=== PATIENT | female | born 1995 | race Caucasian/White ===

== ENCOUNTER 2022-04-01 13:07 | Outpatient (CLI) | payer OTHER, SELFPAY ==
--- NOTE | ~2022-04-01 | XR_ITS ---
EXAMINATION: XR tibia fibula RT 2V, XR tibia fibula LT 2V DATE: 04/01/2022 13:19 INDICATION: Bilateral lower leg pain TECHNIQUE: 1. Anteroposterior and lateral views of the left tibia and fibula were obtained. 2. Anteroposterior and lateral views of the right tibia and fibula were obtained. COMPARISON: None. FINDINGS: Bone alignment is normal. No fracture. Joint spaces are normal at the bilateral knees, ankles and vis ualized hind feet. No erosions or periosteal reaction. Mild soft tissue swelling anterior to the dist al right tibial diaphysis. No knee or ankle joint effusions. IMPRESSION: 1. No osseous abnormality at either lower leg. Reviewed, dictated and finalized at location A. IMPRESSION: 1. No osseous abnormality at either lower leg.
== END 2022-04-01 13:08 | disposition home or self-care (01) ==
PROVIDERS: Visit Provider Orthopaedic Surgery
DX: M79.605 Pain in left leg (principal); M79.604 Pain in right leg
CPT/HCPCS: 73590

== ENCOUNTER → 2022-09-23 13:38 | Outpatient (CLI) | payer OTHER, SELFPAY ==
--- NOTE | ~2022-09-23 | US_ITS ---
EXAMINATION: US OB <= 14 weeks fetus INDICATION: Z34.91 - Encounter for supervision of normal , u... TECHNIQUE: Sonography of the pelvis was performed by transabdominal and transvaginal techniques. COMPARISON: None. RESULT: Uterus: Orientation: Anteverted. 10.9 x 6.3 x 6.4 cm. Myometrium: homogeneous echogenicity. Gestation: - Intrauterine gestational sac: Single present. - Yolk sac: A small yolk sac or yolk sac remnant is present, not directly measured. - Embryo: Single present. - [employer] rump length: 3.3 cm, corresponding gestational age 10 weeks, 2 days. -Gestational heart rate: present 164 bpm. -Subgestational hematoma: Absent . Right ovary: Not visualized. No adnexal mass. Left ovary: Not visualized. No adnexal mass. Pelvis free fluid: None. IMPRESSION: Single, live intrauterine gestation. Estimated Gestational Age: 10 weeks, 2 days by crown rump length. DOMONIQUE by ultrasound 04/19/2023. Reviewed, dictated and finalized at location K. IMPRESSION: Single, live intrauterine gestation. Estimated Gestational Age: 10 weeks, 2 days by crown rump length. DOMONIQUE by ultra sound 04/19/2023.
== END ==
PROVIDERS: PCP Obstetrics & Gynecology; Visit Provider Registered Nurse
DX: Z34.91 Encounter for supervision of normal pregnancy, unspecified, first trimester (principal); Z3A.10 10 weeks gestation of pregnancy
CPT/HCPCS: 76801

== ENCOUNTER 2022-10-17 15:37 | Outpatient (CLI) | payer OTHER, SELFPAY ==
[2022-10-17 16:04] LABS: Basophils Absolute Auto 0.1 K/mm3 (0.0-0.1); Basophils Percent Auto 0.8 % (0.2-1.2); Eosinophils Absolute Auto 0.2 K/mm3 (0-0.3); Eosinophils Percent Auto 2.3 % (0-4.4); Hematocrit 31.4 % (37.0-47.0); Hemoglobin 10.7 g/dL (12.0-15.0); Immature Granulocyte Absolute 0.05 K/mm3 (0.00-0.031); Immature Granulocyte Percent A 0.8 % (0-0.5); Lymphocytes Absolute Auto 1.32 K/mm3 (0.9-3.2); Lymphocytes Percent Auto 19.9 % (18.3-44.2); Mean Corpuscular HGB Conc 34.1 g/dl (32-36); Mean Corpuscular Hemoglobin 31.3 pg (26-34); Mean Corpuscular Volume 91.8 fl (80-100); Mean Platelet Volume 10.7 fl (7.4-10.4); Monocytes Absolute Auto 0.4 K/mm3 (0.1-0.6); Monocytes Percent Auto 5.9 % (2.6-8.5); Neutrophils Absolute Auto 4.7 K/mm3 (1.3-6.7); Neutrophils Percent Auto 70.3 % (45.5-73.1); Platelet Count Result 160 k/mm3 (150-375); Red Blood Count 3.42 M/mm3 (4.2-5.4); Red Cell Distribution Width 13.9 % (11.5-14.5); White Blood Count 6.6 K/mm3 (4.5-10.0)
[2022-10-17 16:39] LABS: Rapid Plasma Reagin Non-Reactive (NonReactive)
[2022-10-17 17:34] LABS: Vitamin D 25 Hydroxy 50.1 ng/mL
[2022-10-17 18:00] LABS: Hepatitis B Surface Antigen Negative (Negative); Rubella IgG Antibody 41.4 IU/ML
[2022-10-17 18:07] LABS: Hepatitis C Virus Antibody Negative (Negative)
[2022-10-17 18:18] LABS: HIV 1/2 Ab P24 Ag Result Negative (Negative)
[2022-10-22 16:40] LABS: Hematocrit 31.5 % (35.0-45.0); Hemoglobin 10.9 g/dL (11.7-15.5); MCH 31.6 pg (27.0-33.0); MCV 91.3 fL (80.0-100.0); RDW 14.3 % (11.0-15.0); Red Blood Cell Count 3.45 Mill/uL (3.80-5.10)
== END 2022-10-17 15:38 | disposition home or self-care (01) ==
PROVIDERS: PCP Obstetrics & Gynecology; Visit Provider Registered Nurse
DX: Z34.01 Encounter for supervision of normal first pregnancy, first trimester (principal)
CPT/HCPCS: 36415; 82306; 83021; 84443; 85025; 86592; 86703; 86762; 86787; 86803; 86850; 86900; 86901; 87086; 87340; G0432

== ENCOUNTER 2023-01-14 14:28 | Outpatient (CLI) | payer OTHER, SELFPAY ==
[2023-01-14 16:10] LABS: Hematocrit 31.9 % (37.0-47.0); Hemoglobin 10.7 g/dL (12.0-15.0); Mean Corpuscular HGB Conc 33.5 g/dl (32-36); Mean Corpuscular Hemoglobin 33.1 pg (26-34); Mean Corpuscular Volume 98.8 fl (80-100); Mean Platelet Volume 10.9 fl (7.4-10.4); Platelet Count Result 143 k/mm3 (150-375); Red Blood Count 3.23 M/mm3 (4.2-5.4); Red Cell Distribution Width 14.6 % (11.5-14.5); White Blood Count 8.8 K/mm3 (4.5-10.0)
[2023-01-14 16:31] LABS: Glucose 1 Hour PP 50gm Dose 105 mg/dL
[2023-01-14 16:56] LABS: Band Neutrophils Percent 3 % (0-6); Lymphocytes Absolute Manual 1.76 K/mm3 (1.1-4.5); Monocytes Absolute Manual 0.26 K/mm3 (0.1-0.90); Monocytes Percent Manual 3 % (3-9); Neutrophils Absolute Manual 6.77 K/mm3 (1.7-7.2); Neutrophils Percent Manual 74 % (46-73); Total Cells Counted 100
[2023-01-14 16:57] LABS: Schistocytes None Seen (NORMAL)
== END 2023-01-14 14:29 | disposition home or self-care (01) ==
LOC: ANHLAB 14:29
PROVIDERS: PCP Obstetrics & Gynecology; Visit Provider Registered Nurse
DX: Z34.92 Encounter for supervision of normal pregnancy, unspecified, second trimester (principal)
CPT/HCPCS: 36415; 82947; 85025

== ENCOUNTER 2023-02-24 13:46 | Outpatient (CLI) | payer OTHER, SELFPAY ==
[2023-02-24 14:00] VITALS: BP 111/66; PULSE 90
--- NOTE | 2023-02-24 14:00 | PC.NURSE ---
pt reports having some discharge. pt is unsure if it is her water is broke. Pt reports feeling good movement and denies contractions. Denies any other complication during this .
[2023-02-24 14:01] VITALS: BP 107/63; PULSE 95
--- NOTE | 2023-02-24 14:32 | PC.NURSE ---
Dr. Ingram on the unit notified of pt negative ROM plus and reviewed tracing. aware that pt has an appointment tomorrow with her provider. Discharge order received.
[2023-02-24 14:33] VITALS: BP 111/66; PULSE 84
== END 2023-02-24 14:34 | disposition home or self-care (01) ==
LOC: ANHOBOP 13:54 → ANHOBPP 13:56
PROVIDERS: Visit Provider Obstetrics & Gynecology
DX: O42.90 Premature rupture of membranes, unspecified as to length of time between rupture and onset of labor, unspecified weeks of gestation (principal); Z3A.00 Weeks of gestation of pregnancy not specified
CPT/HCPCS: 59025; 99199

== ENCOUNTER 2023-02-25 13:27 | Outpatient (CLI) | payer OTHER, SELFPAY ==
[2023-02-25 14:28] LABS: Hematocrit 32.2 % (37.0-47.0); Hemoglobin 10.7 g/dL (12.0-15.0); Immature Platelet Fraction Pct 7.1 % (0.9-11.2); Mean Corpuscular HGB Conc 33.2 g/dl (32-36); Mean Corpuscular Hemoglobin 32.7 pg (26-34); Mean Corpuscular Volume 98.5 fl (80-100); Mean Platelet Volume 11.2 fl (7.4-10.4); Platelet Count Result 130 k/mm3 (150-375); Red Blood Count 3.27 M/mm3 (4.2-5.4); White Blood Count 7.9 K/mm3 (4.5-10.0)
[2023-02-25 15:06] LABS: Band Neutrophils Percent 11 % (0-6); Eosinophils Absolute Manual 0.07 K/mm3 (0.02-0.5); Eosinophils Percent Manual 1 % (0-4); Lymphocytes Absolute Manual 0.94 K/mm3 (1.1-4.5); Monocytes Absolute Manual 0.31 K/mm3 (0.1-0.90); Monocytes Percent Manual 4 % (3-9); Neutrophils Absolute Manual 6.55 K/mm3 (1.7-7.2); Neutrophils Percent Manual 72 % (46-73); Schistocytes None Seen (NORMAL); Total Cells Counted 100
[2023-02-25 15:11] LABS: HIV 1/2 Ab P24 Ag Result Negative (Negative)
[2023-02-26 14:44] LABS: Rapid Plasma Reagin Non-Reactive (NonReactive)
== END 2023-02-25 13:28 | disposition home or self-care (01) ==
LOC: ANHLAB 13:28
PROVIDERS: Visit Provider Obstetrics & Gynecology
DX: Z34.03 Encounter for supervision of normal first pregnancy, third trimester (principal); Z3A.00 Weeks of gestation of pregnancy not specified
CPT/HCPCS: 36415; 85025; 85055; 86592; 86703; G0432

== ENCOUNTER 2023-04-15 08:55 | Outpatient (RCR) | payer BC, OTHER, SELFPAY ==
--- NOTE | ~2023-04-15 | US_ITS ---
EXAMINATION: US OB BPP wo non-stress DATE: 04/15/2023 10:33 CDT INDICATION: Biophysical profile. TECHNIQUE: Real-time transabdominal obstetric ultrasound. FINDINGS: No prior studies for comparison. There is a single living fetus in vertex presentation. The placenta is posterior without placenta pr evia. cardiac activity and movement is noted with a heart rate of 136 beats per minute. Biophysical profile: breathin of 2 movement: 2 of 2 tone: 2 of 2 Amniotic flud pocket: 2 of 2 Total score: 8 of 8 IMPRESSION: 1. Single living intrauterine in vertex presentation. 2: Total biophysical profile score of 8/8. Reviewed, dictated and finalized at location L.
== END 2023-05-22 11:28 | disposition home or self-care (01) ==
LOC: ANHOBOP 08:55
PROVIDERS: Visit Provider Obstetrics & Gynecology
DX: O26.893 Other specified pregnancy related conditions, third trimester (principal); Z3A.39 39 weeks gestation of pregnancy
CPT/HCPCS: 59025; 76819

== ENCOUNTER 2023-04-24 15:59 | Inpatient (IN) | payer BC, OTHER, SELFPAY ==
[2023-04-24] VITALS (9 sets, daily range): BP systolic 100–114; BP diastolic 40–69; PULSE 86–100; RESP 16; TEMP 36.5–37.2; BMI 30.5
[2023-04-24] MEDS: DINOPROSTONE 10 MG VAG INSERT VAGINAL (16:43)
[2023-04-24 16:44] LABS: Basophils Absolute Auto 0.1 K/mm3 (0.0-0.1); Basophils Percent Auto 0.7 % (0.2-1.2); Eosinophils Absolute Auto 0.1 K/mm3 (0-0.3); Eosinophils Percent Auto 1.1 % (0-4.4); Hemoglobin 12.1 g/dL (12.0-15.0); Immature Granulocyte Absolute 0.39 K/mm3 (0.00-0.031); Immature Granulocyte Percent A 4.4 % (0-0.5); Immature Platelet Fraction Pct 9.5 % (0.9-11.2); Lymphocytes Absolute Auto 0.84 K/mm3 (0.9-3.2); Lymphocytes Percent Auto 9.4 % (18.3-44.2); Mean Corpuscular HGB Conc 33.6 g/dl (32-36); Mean Corpuscular Hemoglobin 33.2 pg (26-34); Mean Corpuscular Volume 98.6 fl (80-100); Mean Platelet Volume 11.6 fl (7.4-10.4); Monocytes Absolute Auto 0.5 K/mm3 (0.1-0.6); Monocytes Percent Auto 5.4 % (2.6-8.5); Platelet Count Result 134 k/mm3 (150-375); Red Blood Count 3.65 M/mm3 (4.2-5.4); Red Cell Distribution Width 14.7 % (11.5-14.5); White Blood Count 8.9 K/mm3 (4.5-10.0)
--- NOTE | 2023-04-24 16:52 | LDADM ---
This patient, Mika Livingston, was admitted to Labor/Delivery/Recovery 106 on 04/24/23 at 15:59. Plans for labor, pain management and were discussed with patient. Patient/family oriented to hospital policies and general routines including ID bracelet, bed and alarms, visiting hours, pain management, procedures, bathroom and other care routines, personal items, smoking policy, room service/diet and guest tray routines, security routines, and visiting hours. Patient/Family are encouraged to report perceived risks to care and to ask questions if they do not understand what they are told or what they should do. See OBIX for further documentation.
--- NOTE | 2023-04-24 17:45 | WPDANESEPP ---
Anes - Eval Pre Procedure Procedure: Labor epidural Date/Time: 04/24/23 17:45 Surgeon: Radha Preop Diagnosis: Abdominal pain with contractions Pre Op Diagnosis: IOL Patient Data Age: 27 Gender: F Height: 1.52 m Weight: 71 kg Last Vital Signs Pulse 86 04/24/23 17:29 BP 101/69 04/24/23 17:29 O2 Del Method Room Air 04/24/23 16:46 Allergies Allergy/AdvReac Type Severity Reaction Status Date / Time No Known Allergies Allergy Verified 04/22/23 14:47 Home Medications Medication Instructions Recorded Confirmed Type prenat.vits,barb,weq-bprn-cdbty 1 tablet PO DAILY 09/12/22 04/22/23 History ferrous sulfate 325 mg (65 mg 325 mg PO BID 01/15/23 04/22/23 History iron) tablet Laboratory Tests 04/24/23 16:33 WBC 8.9 K/mm3 (4.5-10.0) RBC 3.65 L M/mm3 (4.2-5.4) Hgb 12.1 g/dL (12.0-15.0) Hct 36.0 L % (37.0-47.0) MCV 98.6 fl (80-100) MCH 33.2 pg (26-34) MCHC 33.6 g/dl (32-36) RDW 14.7 H % (11.5-14.5) Plt Count 134 L k/mm3 (150-375) MPV 11.6 H fl (7.4-10.4) Immature Gran % (Auto) 4.4 H % (0-0.5) Neut % (Auto) 79.0 H % (45.5-73.1) Lymph % (Auto) 9.4 L % (18.3-44.2) [place] % (Auto) 5.4 % (2.6-8.5) Eos % (Auto) 1.1 % (0-4.4) Baso % (Auto) 0.7 % (0.2-1.2) Lymph # (Auto) 0.84 L K/mm3 (0.9-3.2) [place] # (Auto) 0.5 K/mm3 (0.1-0.6) Eos # (Auto) 0.1 K/mm3 (0-0.3) Baso # (Auto) 0.1 K/mm3 (0.0-0.1) Abs Immat Gran (auto) 0.39 H K/mm3 (0.00-0.031) Absolute Neuts (auto) 7.0 H K/mm3 (1.3-6.7) Absolute Nucleated RBC 0.0 K/mm3 (0.0-0.012) Nucleated RBC % 0.0 % (0.0-0.2) % Immature Plt Fraction 9.5 % (0.9-11.2) RPR Pending Blood Type O Positive Antibody Screen Negative : gestational age HCG: positive Patient hx anesthesia problems: none Family hx anesthesia problems: none Results Review: All pre-operative results and documents have been reviewed as part of the pre-operative evaluation. [facility] Past Medical History Medical History Medial tibial stress syndrome Migraines Overweight (BMI 25.0-29.9) and not yet delivered Surgical History Surgical History H/O elbow surgery Family History Family History Sibling Asthma Mother Hypertension Social History Social History Smoking status: Never smoker Alcohol intake: former Alcohol use details: Not since . 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
[2023-04-24] MEDS: ZOLPIDEM TARTRATE (*CRX) 5 MG TABLET PO (21:33)
[2023-04-25] VITALS (205 sets, daily range): BP systolic 95–126; BP diastolic 47–103; PULSE 60–126; RESP 16–17; TEMP 36.4–38.1; O2SAT 90–99
[2023-04-25] MEDS: fentaNYL CITRATE INJ (*CRX) 100 MCG/2 ML VIAL IV PUSH ×3 (05:31→10:35)
[2023-04-25] MEDS: OXYTOCIN 30 UNITS/NS 500 ML 30 UNITS/500 ML BAG 6 UNITS IV CONT (06:36)
[2023-04-25] MEDS: LACTATED RINGERS 1,000 ML 125 ML IV CONT ×3 (06:37→23:15)
--- NOTE | 2023-04-25 09:14 | PM.IMHP ---
H&P: HPI History of Present Illness Date/Time: 04/25/23 09:14 Chief Complaint: Medical induction of labor Narrative: She is a 27 y/o G1 at 40 5/7 with an edc 04/19/23 by LMP 07/13/22 consistent with a 10 week ultrasound. PNC uncomplicated. She presents for [facility] for post dates. Labs reviewed. GBS neg. Review of Systems Review of Systems: All systems reviewed & are unremarkable except as noted in HPI and below Constitutional: Constitutional: Reports no additional constitutional complaints and Denies headache(s) Eyes: Eyes: Denies spots in vision ENT: Reports system reviewed and no additional complaints, except as documented and Denies headache(s) Cardiovascular: Cardiovascular: Denies chest pain and Denies dyspnea Respiratory: Respiratory: Denies dyspnea Gastrointestinal: Gastrointestinal: Reports no additional gastrointestinal complaints Genitourinary: Genitourinary: Reports amenorrhea Musculoskeletal: Musculoskeletal: Reports no additional musculoskeletal complaints Integumentary/Breasts: Skin/Breast: Denies breast mass and Denies rash Neurologic: Denies headache(s) Psychiatric: Psychiatric: Reports no additional psychiatric complaints [facility] Past Medical History Medical History Medial tibial stress syndrome Migraines Overweight (BMI 25.0-29.9) and not yet delivered Surgical History Surgical History H/O elbow surgery Family History Family History Sibling Asthma Mother Hypertension Social History Social History Smoking status: Never smoker Alcohol intake: former Alcohol use details: Not since . Substance use: never Lack of Transportation: No Lack of Food: Never True Current Housing: I Have Housing Concerned About Future Housing: No Difficulty Paying Gas/Electric Bills: No Difficulty Paying for Meds: No Currently Unemployed: No Education: Bachelor's Degree Difficulty w/ Childcare or Family Care: No Living arrangements: with family Occupation/Education: occupation Additional occupation/education comments: [employer] Gender identity (if verbalized by the patient): Female Sexual Orientation (if Verbalized by the Patient): Straight or Heterosexual Spiritual care concerns: No Meds Home Medications and Allergies Home Medications Medication Instructions Recorded Confirmed Type prenat.vits,barb,rjk-smtl-bsikg 1 tablet PO DAILY 09/12/22 04/22/23 History ferrous sulfate 325 mg (65 mg 325 mg PO BID 01/15/23 04/22/23 History iron) tablet Allergies Allergy/AdvReac Type Severity Reaction Status Date / Time No Known Allergies Allergy Verified 04/22/23 14:47 Vital Signs Vital Signs - 24 hr 04/24/23 16:46 04/24/23 16:59 04/24/23 17:15 Temperature Pulse Rate 100 92 Respiratory Rate Blood Pressure 108/40 L 100/61 Oxygen Delivery Room Air 04/24/23 17:29 04/24/23 17:44 04/24/23 17:59 Temperature Pulse Rate 86 91 96 Respiratory Rate Blood Pressure 101/69 108/62 107/68 Oxygen Delivery 04/24/23 18:15 04/24/23 18:30 04/24/23 18:45 Temperature 97.7 F Pulse Rate 89 95 93 Respiratory Rate 16 Blood Pressure 111/61 110/58 L 111/67 Oxygen Delivery 04/24/23 21:33 04/25/23 05:27 04/25/23 07:33 Temperature 99 F 98.6 F Pulse Rate 95 74 68 Respiratory Rate 16 16 Blood Pressure 114/64 111/86 107/61 Oxygen Delivery 04/25/23 08:00 04/25/23 08:30 04/25/23 09:00 Temperature Pulse Rate 88 81 84 Respiratory Rate Blood Pressure 102/66 96/58 L 95/55 L Oxygen Delivery Exam Const: General: no acute distress Eyes: General: appearance normal, both eyes and all related structures Resp: Effort & Inspection: normal respiratory effort Cardio: Rat
--- NOTE | 2023-04-25 09:15 | P.PNOB_ITS ---
OB - PN: Subj Subjective Date/time seen: 04/25/23 09:15 Interval history: irreg ctx, Cat 1, 135-140, cervix 1.5/60/-2 AROM clear fluid, continue pitocin. OB - PN: Obj Data Labs 04/24/23 16:33 Labs: Laboratory Results - last 24 hr 04/24/23 16:33 WBC 8.9 RBC 3.65 L Hgb 12.1 Hct 36.0 L MCV 98.6 MCH 33.2 MCHC 33.6 RDW 14.7 H Plt Count 134 L MPV 11.6 H Immature Gran % (Auto) 4.4 H Neut % (Auto) 79.0 H Lymph % (Auto) 9.4 L [place] % (Auto) 5.4 Eos % (Auto) 1.1 Baso % (Auto) 0.7 Lymph # (Auto) 0.84 L [place] # (Auto) 0.5 Eos # (Auto) 0.1 Baso # (Auto) 0.1 Abs Immat Gran (auto) 0.39 H Absolute Neuts (auto) 7.0 H Absolute Nucleated RBC 0.0 Nucleated RBC % 0.0 % Immature Plt Fraction 9.5 Blood Type O Positive Antibody Screen Negative OB - PN A/P Time Spent With Patient Time: Total time spent is greater than 50% in coordination of care (as documented) at patient's floor/unit and/or counseling patient:
[2023-04-25 14:19] LABS: Rapid Plasma Reagin Non-Reactive (NonReactive)
[2023-04-25] MEDS: CYCLOBENZAPRINE HCL 10 MG TABLET PO (18:27)
[2023-04-25] MEDS: AMPICILLIN 2 GM/NS 100 ML 2 GM/100 ML BAG IVPB (23:16)
[2023-04-25] MEDS: ACETAMINOPHEN 500 MG TABLET 1000 MG PO (23:16)
[2023-04-25] MEDS: GENTAMICIN SULFATE INJ 355 MG in DEXTROSE 5% 100 ML 100 MG IVPB (23:38)
[2023-04-26] VITALS (167 sets, daily range): BP systolic 79–128; BP diastolic 47–96; PULSE 70–154; RESP 14–20; TEMP 36.5–38; O2SAT 89–100
[2023-04-26] MEDS: AMPICILLIN 1 GM/NS 50 ML 1 GM/50 ML BAG IVPB ×4 (03:30→20:00)
[2023-04-26] MEDS: LACTATED RINGERS 1,000 ML 125 ML IV CONT ×3 (03:33→13:04)
[2023-04-26] MEDS: OXYTOCIN 30 UNITS/NS 500 ML 30 UNITS/500 ML BAG 8 UNITS IV CONT (05:37)
[2023-04-26] MEDS: ACETAMINOPHEN 500 MG TABLET 1000 MG PO (08:18)
[2023-04-26] MEDS: AZITHROMYCIN 500 MG/NS 250 ML 500 MG/250 ML BAG 250 MG IVPB (09:50)
[2023-04-26] MEDS: ceFAZolin 2 GM/D5W 50 ML 2 GM/50 ML BAG IVPB (10:10)
--- NOTE | 2023-04-26 11:52 | PM.OP ---
Procedure Note - Brief Procedure Note - Brief Date of procedure: 04/26/23 Failure to descend Chorioamnionitis Post-op diagnosis: Same Procedure performed: Primary low transverse section Surgeon: Adithya Garcia MD Anesthesia: epidural Findings: Male 8lbs 13oz, OT position, normal ovaries, uterine atony, methergine and trenexamic acid given,vaginal wall laceration and periurethral, hemostasis obtained with O vicryl figure of eight, small vag pack placed Urine output (mL): -200.0 Drains: No Packing: Yes (small vag packing) Pathology: Yes (placenta and cord) Complications: No immediate complications Condition: Stable Disposition: Floor
--- NOTE | 2023-04-26 12:26 | W.PM.PROC2 ---
Procedure Note - Detailed Date of Procedure 04/26/23 Pre-op Diagnosis Failure to descend Post-op Diagnosis Other (Uterine atony.) Procedure Performed Primary low-transverse section Surgeon Adithya Garcia MD Anesthesia Epidural Indications Patient was admitted on evening of 04 24 23 for induction of labor postdates. She had Cervidil placed. She was subsequently started on Pitocin the morning of 04 25. She had assisted rupture membranes. She had slow progression in latent labor. She did develop a fever and tachycardia during labor and was started on antibiotics for chorioamnionitis. tracing was reassuring. She did progress to active labor. And has slow progression in active labor she did dilate to complete and had adequate pushing for less than 2 hours she was informed that there was no descent in the presenting head. She was recommended for section. Discussed risks benefits of section with her and she agreed to section. Findings Male infant 8 lb 13 oz OT presentation normal fallopian tubes and ovaries. Vaginal wall laceration and periurethral laceration. Description of Procedure After informed consent, risks and benefits of the procedure was discussed with the patient. The patient was taken to the operating room where she was placed in the dorsal lithotomy position with leftward tilt. After the prior placed epidural anesthesia was found to be adequate, she was then prepped and draped in the usual sterile fashion. A Pfannenstiel skin incision was made with a scalpel and carried through to the underlying layer of fascia. The fascia was then nicked in the midline, extending bilaterally. The fascia was dissected off the rectus muscles bluntly and sharply, superiorly and inferiorly. The rectus muscles were in the midline, and peritoneum was identified and entered bluntly. The pelvic organs were visualized. The bladder blade was then inserted. The vesicouterine peritoneum was identified and entered sharply with Metzenbaum scissors and extended bilaterally and then the bladder flap was created digitally. The low transverse uterine incision was then made with the scalpel and extended with bilateral index fingers in a crescent-shaped fashion. The head was delivered and the rest of the was delivered. The nose and mouth suctioned. The cord was clamped twice and cut. The was then handed off to the awaiting pediatric staff. Cord blood was obtained.The cord was clamped twice and cut the placenta was then delivered manually. The uterus was exteriorized. The uterine cavity was sponge curretted. There was noted to be significant uterine atony. Uterine compression was applied to the uterus. She was given Pitocin through the IV. She was also given Methergine 0.2 mg IM. The uterine atony improved after her 5-10 minutes after the Methergine. There was a small laceration inferior uterine incision which was approximated and hemostasis obtained with 0 Vicryl. The uterine incision was then closed with 0 vicryl in a running locked fashion. A figure of eight of 0 vicryl at the right of incision was used for hemostasis. Hemostasis noted. A second layer of 0 vicryl was used in an imbricating fashion for hemostasis. The uterus was then returned to the abdomen. Bilateral gutters were cleared off all clots and debris. The uterine incision was noted to be hemostatic. Interceed placed on uterine incision and vertically on front of uterus. The muscle bellies were inspected and noted to be hemostatic. The subfascial layer was noted to be hemostatic, and the fascia was closed with 0 Vicryl in a running fashion. The subcutaneous layer was irrigated and then approximated with 3-0 Vicryl in a subcutaneous fashion. The skin was closed with 4-0 Vicryl subcuticular on a Jn needle. Skin dermabond applied at incision. All instruments, needle, and lap counts were correct x3. Attention was turned to the vaginal
[2023-04-26] MEDS: CLINDAMYCIN 900 MG/D5W 50 ML 900 MG/50 ML PIGGYBACK 50 MG IVPB ×2 (13:03→21:10)
--- NOTE | 2023-04-26 14:06 | OBPPTRN ---
Patient transferred to post room #285 via stretcher. Support person present. Oriented to unit, room, information board, rooming in, admission packet and security measures. Patient verbalizes understanding.
[2023-04-26 14:12] LABS: Estimated CRCL calculation 67 ml/min; Estimated Glomerular Filt Rate > 60
[2023-04-26 14:23] LABS: Gentamicin Random 2.5 ug/mL (5.0-12.0)
--- NOTE | 2023-04-26 14:40 | SUR.OPER ---
Repair of vaginal wall laceration after . See MD documentation.
[2023-04-26] MEDS: HYDROcodone/acetaminophen (*CRX) 5-325 MG TABLET 1 TAB PO ×2 (15:59→21:00)
[2023-04-26] MEDS: LIDOCAINE 5% PATCH 1 PATCH TRANSDERM (16:00)
[2023-04-26] MEDS: DEXTROSE 5%/0.45% SOD CHL 1,000 ML 125 ML IV CONT (17:29)
[2023-04-26] MEDS: FERROUS SULFATE 325 MG TABLET DR PO (17:32)
[2023-04-26] MEDS: DOCUSATE SODIUM 100 MG CAPSULE PO (17:32)
[2023-04-26 18:01] LABS: Basophils Absolute Auto 0.1 K/mm3 (0.0-0.1); Basophils Percent Auto 0.3 % (0.2-1.2); Eosinophils Absolute Auto 0.2 K/mm3 (0-0.3); Eosinophils Percent Auto 1.2 % (0-4.4); Hematocrit 24.7 % (37.0-47.0); Hemoglobin 8.1 g/dL (12.0-15.0); Immature Granulocyte Absolute 0.18 K/mm3 (0.00-0.031); Lymphocytes Absolute Auto 0.41 K/mm3 (0.9-3.2); Lymphocytes Percent Auto 2.4 % (18.3-44.2); Mean Corpuscular HGB Conc 32.8 g/dl (32-36); Mean Corpuscular Hemoglobin 33.1 pg (26-34); Mean Corpuscular Volume 100.8 fl (80-100); Monocytes Absolute Auto 0.5 K/mm3 (0.1-0.6); Monocytes Percent Auto 3.1 % (2.6-8.5); Neutrophils Absolute Auto 15.8 K/mm3 (1.3-6.7); Platelet Count Result 103 k/mm3 (150-375); Red Blood Count 2.45 M/mm3 (4.2-5.4); Red Cell Distribution Width 14.8 % (11.5-14.5); White Blood Count 17.2 K/mm3 (4.5-10.0)
[2023-04-27] VITALS (14 sets, daily range): BP systolic 96–114; BP diastolic 52–72; PULSE 87–119; RESP 16–20; TEMP 36.4–37; O2SAT 96–100
[2023-04-27] MEDS: AMPICILLIN 1 GM/NS 50 ML 1 GM/50 ML BAG IVPB ×2 (02:00→08:09)
[2023-04-27] MEDS: DEXTROSE 5%/0.45% SOD CHL 1,000 ML 125 ML IV CONT (02:55)
[2023-04-27] MEDS: CLINDAMYCIN 900 MG/D5W 50 ML 900 MG/50 ML PIGGYBACK 50 MG IVPB (05:00)
[2023-04-27] MEDS: HYDROcodone/acetaminophen (*CRX) 5-325 MG TABLET 1 TAB PO (05:07)
[2023-04-27 05:36] LABS: Immature Platelet Fraction Pct 7.9 % (0.9-11.2); Mean Corpuscular HGB Conc 32.3 g/dl (32-36); Mean Corpuscular Hemoglobin 32.7 pg (26-34); Platelet Count Result 97 k/mm3 (150-375); Red Blood Count 1.99 M/mm3 (4.2-5.4); Red Cell Distribution Width 14.8 % (11.5-14.5); White Blood Count 10.6 K/mm3 (4.5-10.0)
[2023-04-27 05:41] LABS: Hematocrit 20.1 % (37.0-47.0); Hemoglobin 6.5 g/dL (12.0-15.0)
[2023-04-27] MEDS: MULTIVIT/MIN/PREN/FOL AC/IRON TABLET 1 TAB PO (08:10)
[2023-04-27] MEDS: HYDROcodone/acetaminophen (*CRX) 10-325 MG TABLET 1 TAB PO ×5 (08:10→22:06)
[2023-04-27] MEDS: DOCUSATE SODIUM 100 MG CAPSULE PO ×2 (08:10→18:00)
[2023-04-27] MEDS: FERROUS SULFATE 325 MG TABLET DR PO ×2 (08:10→18:00)
[2023-04-27] MEDS: IBUPROFEN 600 MG TABLET PO ×3 (08:10→22:06)
--- NOTE | 2023-04-27 09:05 | WPDANLDPN2 ---
Anes-Prog Note L&D Date/Time: 04/27/23 09:05 Comfortable throughout: labor and section Neuraxial method: epidural Epidural/Spinal procedure site: clean & non-tender Neuro status: Neuro function grossly intact. Cardiovascular status: normal (hgb 6.5 today) Respiratory status: normal Airway patency: baseline Mental status: baseline Post-Op hydration status: normal Vital Signs: Last Vital Signs Temp 37.0 C 04/27/23 07:15 Pulse 103 H 04/27/23 07:15 Resp 16 04/27/23 07:15 BP 97/56 L 04/27/23 07:15 Pulse Ox 97 04/27/23 07:15 O2 Del Method Room Air 04/27/23 07:15 Pain score (VAS): 4. right incisional pain. I/O: Intake & Output 04/26/23 04/27/23 04/27/23 23:59 07:59 15:59 Intake Total 100 2100 50 Output Total 400 1100 100 Balance -300 1000 -50 Post-procedural complaints: none Patient feedback: Patient satisfied with anesthetic care.
--- NOTE | 2023-04-27 09:06 | WPDANLDNPN2 ---
Anes-Prog Note L&D-Neuraxial Date/Time: 04/27/23 09:06 Neuraxial medications: epidural PF morphine Opiod-related complaints: none Patient feedback: Patient satisfied with post-operative pain management.
--- NOTE | 2023-04-27 09:56 | PM.OBPRVD ---
OB - Delivery Note Procedure Delivery date: 04/26/23 Procedure: Procedures Operation Date: 04/26/23 09:40 Actual Procedure Side Surgeon p Section Not Applicable Adithya Garcia MD Events: Other (Post dates) Intrapartal Events: Arrest of Descent and Other (chorioamnionitis) Induction method: Per Misoprostol Protocol Delivery augmentation: Rupture of Membranes Delivery monitor: External FHT and Internal Uterine Route of delivery: Prior to decision for section, ACOG/SMFM labor guidelines were considered and discussed with the patient and staff. Decision made to proceed with the section.: Yes Baby Weeks of gestation at delivery: 41 AMG Delivery Billing Delivery Delivery: Delivery Charge
--- NOTE | 2023-04-27 10:00 | P.PNOB_ITS ---
OB - PN: Subj Subjective Date/time seen: 04/27/23 10:00 Interval history: She has sat up in chair and walked to bathroom, pain somewhat improved with medication, no dizziness, denies chest pain, denies SOB. No leg pain. She feels week. Decreased lochia. OB - PN: Obj Data Labs 04/27/23 05:12 04/26/23 13:55 Labs: Laboratory Results - last 24 hr 04/26/23 04/26/23 04/27/23 13:55 17:43 05:12 WBC 17.2 H 10.6 H RBC 2.45 L 1.99 L Hgb 8.1 L D 6.5 L* Hct 24.7 L 20.1 L* MCV 100.8 H 101.0 H MCH 33.1 32.7 MCHC 32.8 32.3 RDW 14.8 H 14.8 H Plt Count 103 L 97 L MPV 12.0 H 12.0 H Immature Gran % (Auto) 1.0 H Neut % (Auto) 92.0 H Lymph % (Auto) 2.4 L [place] % (Auto) 3.1 Eos % (Auto) 1.2 Baso % (Auto) 0.3 Lymph # (Auto) 0.41 L [place] # (Auto) 0.5 Eos # (Auto) 0.2 Baso # (Auto) 0.1 Abs Immat Gran (auto) 0.18 H Absolute Neuts (auto) 15.8 H Absolute Nucleated RBC 0.0 Nucleated RBC % 0.0 % Immature Plt Fraction 7.9 Creatinine 1.00 Estim Creat Clear Calc 67 Estimated GFR > 60 Random Gentamicin 2.5 L OB - PN A/P Assessment and Plan (1) Delivery by section: Status: Acute Assessment and Plan: POD1. Continue routine post op care. (2) Postoperative anemia due to acute blood loss: Code(s): D62 - Acute posthemorrhagic anemia Status: Acute Assessment and Plan: Severe, tachycardic. Will transfuse 2 units. Iron therapy. Low platelets, consistent with EBL, h/o lower platelets antepartum. (3) Chorioamnionitis: Code(s): O41.1290 - Chorioamnionitis, unspecified trimester, not applicable or unspecified Status: Acute Assessment and Plan: Afebrile for over 24 hour. Will discontinue antibiotics. Time Spent With Patient Time: Total time spent is greater than 50% in coordination of care (as documented) at patient's floor/unit and/or counseling patient: Exam Const: General: no acute distress Resp: Effort & Inspection: normal respiratory effort Auscultation: clear to auscultation bilaterally Cardio: Rate: regular rate and tachycardic GI: Other: dressing clean, intact, no soiling, fundus, appropriate tenderness, firm -2 umb Extrem: General: no calf tenderness Other: 1+ edema bilat Psych: Mental Status: mental status grossly normal
[2023-04-27] MEDS: SODIUM CHLORIDE 0.9% IV 250 ML 30 ML IV CONT (11:23)
[2023-04-27] MEDS: TUBING, BLOOD PLUM PUMP TUBING 1 EACH XX ×2 (11:23→14:06)
[2023-04-27] MEDS: SIMETHICONE 80 MG TAB.CHEW PO ×3 (11:43→20:38)
[2023-04-28 04:36] LABS: Hematocrit 23.9 % (37.0-47.0); Hemoglobin 7.9 g/dL (12.0-15.0); Immature Platelet Fraction Pct 5.9 % (0.9-11.2); Mean Corpuscular HGB Conc 33.1 g/dl (32-36); Mean Corpuscular Hemoglobin 33.2 pg (26-34); Mean Corpuscular Volume 100.4 fl (80-100); Mean Platelet Volume 11.1 fl (7.4-10.4); Platelet Count Result 103 k/mm3 (150-375); Red Blood Count 2.38 M/mm3 (4.2-5.4); Red Cell Distribution Width 14.9 % (11.5-14.5); White Blood Count 10.3 K/mm3 (4.5-10.0)
[2023-04-28 07:35] VITALS: BP 107/66; PULSE 103; RESP 16; TEMP 36.8; O2SAT 97
[2023-04-28] MEDS: FERROUS SULFATE 325 MG TABLET DR PO ×2 (08:43→17:49)
[2023-04-28] MEDS: DOCUSATE SODIUM 100 MG CAPSULE PO ×2 (08:43→17:49)
[2023-04-28] MEDS: MULTIVIT/MIN/PREN/FOL AC/IRON TABLET 1 TAB PO (08:43)
[2023-04-28] MEDS: IBUPROFEN 600 MG TABLET PO ×2 (08:47→17:50)
[2023-04-28] MEDS: HYDROcodone/acetaminophen (*CRX) 10-325 MG TABLET 1 TAB PO (08:47)
--- NOTE | 2023-04-28 11:17 | PM.OBPNVD ---
OB - PN: Subj Subjective Date/time seen: 04/28/23 11:17 Interval history: She states adequate pain control, she has ambulated without problems, no lightheadedness or dizziness or SOB, lochia decreasing, she is , mild sore nipples, she had a few episodes of ? chills, afebrile, no leg pain, tolerating regular diet, positive flatus. OB - PN: Obj Data Labs 04/28/23 04:23 04/26/23 13:55 Labs: Laboratory Results - last 24 hr 04/24/23 04/28/23 16:33 04:23 WBC 10.3 H RBC 2.38 L Hgb 7.9 L Hct 23.9 L MCV 100.4 H MCH 33.2 MCHC 33.1 RDW 14.9 H Plt Count 103 L MPV 11.1 H % Immature Plt Fraction 5.9 Blood Type O Positive Antibody Screen Negative Crossmatch See Detail OB - PN A/P Assessment and Plan (1) Delivery by section: Status: Acute Assessment and Plan: POD2. Doing well. Continue routine post op care. (2) Postoperative anemia due to acute blood loss: Code(s): D62 - Acute posthemorrhagic anemia Status: Acute Assessment and Plan: S/P 2units PRBC yesterday. Asymptomatic anemia. Continue iron supplementation. Time Spent With Patient Time: Total time spent is greater than 50% in coordination of care (as documented) at patient's floor/unit and/or counseling patient: Exam Const: General: comfortable and no acute distress Resp: Effort & Inspection: normal respiratory effort GI: Other: fundus firm below umbilicus appropriate tender incision intact Extrem: General: no calf tenderness (1+ edema bilat) Psych: Mental Status: mental status grossly normal Affect: normal affect
[2023-04-28] MEDS: SIMETHICONE 80 MG TAB.CHEW PO (13:08)
[2023-04-28] MEDS: HYDROcodone/acetaminophen (*CRX) 5-325 MG TABLET 1 TAB PO ×2 (13:10→17:49)
--- NOTE | 2023-04-28 16:00 | PC.NURSE ---
[id number] Introductions were made to assess needs. Mother is using a pump at this time. Assessed pump flange and fit. Mother states she is pumping without pain;however, the has been painful. 's tongue is visualized to be tight and mother's nipples are reddened with blisters. Mother works well with her with encouragement and states the Technical Communicator states she will possibly fix the tight tongue on Friday in the office. Reviewed working with infant, supporting breast and how to protect the nipples with an optimal deep latch, good positioning, and good hand washing. Encouraged understanding the benefits of skin to skin, responding to feeding cues, frequencies of feeding 8-12 times in 24 hours (approximately 2-3 hours), duration of feedings, milk production, intake/output feeding sheet and signs of adequate intake encouraging swallowing at the breast. Mother is placed in a laid-back position with upright [id number]. was given time to practice instincts finding the breast. With mother using the sandwich hold infant was able to latch with initial pain to mother rated 2 that subsided. Education given to parents of how to visualize sucks, swallows and how to listen for drinking at the breast which infant demonstrated. was able to maintain latch without discomfort to mother and mother states this is the best the latch has felt. Nipple care reviewed with optimal latch, good positioning and using clean hands when feeding her infant and touching her breast. When self detached after 10 minutes the nipple was slightly flattened on the underside. Infant was placed upright [id number] on mother's chest. has blood drawn for a glucose serum test, then once feeding cues are visualized, then infant is assisted minimally to the left breast with mother using the sandwich hold. Mother denies pain after the the initial discomfort and states this is the best the latch has felt since delivery. Infant self-detaches after approximately 10 minutes. Mother's nipple is slightly flattened on the underside and a small blister is visible. Reviewed with mother how to protect her nipples and her milk supply. Discussion of the milk possibly having a delay related to events surrounding the delivery with primary section and blood loss greater than 1000. Resources used to facilitate learning were used from the tool. Mother voiced understanding of the education shared, to call for assistance if the infant does not latch or if there is discomfort with . Reported to the primary RN.
[2023-04-28 19:54] VITALS: BP 108/77; PULSE 97; RESP 18; TEMP 37.1; O2SAT 98
[2023-04-29] MEDS: IBUPROFEN 600 MG TABLET PO ×4 (03:40→23:44)
[2023-04-29] MEDS: HYDROcodone/acetaminophen (*CRX) 10-325 MG TABLET 1 TAB PO ×2 (03:40→07:52)
[2023-04-29] MEDS: SIMETHICONE 80 MG TAB.CHEW PO ×5 (03:41→20:50)
[2023-04-29 07:45] VITALS: BP 119/66; PULSE 87; RESP 16; TEMP 36.6; O2SAT 96
[2023-04-29] MEDS: MULTIVIT/MIN/PREN/FOL AC/IRON TABLET 1 TAB PO (07:53)
[2023-04-29] MEDS: FERROUS SULFATE 325 MG TABLET DR PO ×2 (07:53→17:47)
[2023-04-29] MEDS: DOCUSATE SODIUM 100 MG CAPSULE PO ×2 (07:53→17:47)
[2023-04-29] MEDS: HYDROcodone/acetaminophen (*CRX) 5-325 MG TABLET 1 TAB PO ×5 (11:09→23:45)
--- NOTE | 2023-04-29 13:55 | PC.NURSE ---
[id number] Mother verbalizes she is able to independently latch with appropriate positioning/alignment. She denies any nipple discomfort that is like before meeting and is responsively . Infant's tongue is tight and still misshapes mothers nipple slightly. Encouraged mother to change positions as she breastfeed as a method of protecting the nipple so the same side doesn't get flattened at every feeding. is currently meeting outcomes for weight, output, jaundice and feeding frequencies of 8-12 times in 24 hours. Mother is pumping consistently as to protect her milk supply and states she is starting to get more milk out. Mother declines any additional assistance/education at this time. Mother is encouraged to call for assistance if her doesn?t latch or there is discomfort with latching. Mother voiced understanding of information shared and the mom reminded of the mom/baby guide for an additional resource. Reported to the primary RN.
--- NOTE | 2023-04-29 16:49 | P.PNOB_ITS ---
OB - PN: Subj Subjective Date/time seen: 04/29/23 16:49 Interval history: She states adequate pain control, she has ambulated without problems, tolerating regular food positive flatus. Patient comments: pain well controlled, tolerating diet and other (Decreasing lochia.) [place] baby status: doing well and nursing well [place] feeding status: pumping and bottle feeding OB - PN: Obj Data Labs 04/28/23 04:23 04/26/23 13:55 OB - PN A/P Assessment and Plan (1) Delivery by section: Status: Acute Plan day: 3 Plan: routine care Comments: Patient doing well. Anticipate discharge tomorrow. Time Spent With Patient Time: Total time spent is greater than 50% in coordination of care (as documented) at patient's floor/unit and/or counseling patient: Exam Const: General: comfortable and no acute distress Resp: Effort & Inspection: normal respiratory effort GI: Other: Incision healing well. Fundus -1 umbilicus Psych: Mental Status: mental status grossly normal Affect: normal affect Other: Abd: fundus firm below umbilicus, nontender Perineum: healing Ext: nontender
[2023-04-29 20:50] VITALS: BP 118/79; PULSE 90; RESP 14; TEMP 37.1; O2SAT 97
[2023-04-30 07:35] VITALS: BP 111/67; PULSE 82; RESP 16; TEMP 36.8; O2SAT 96
[2023-04-30] MEDS: DOCUSATE SODIUM 100 MG CAPSULE PO (09:24)
[2023-04-30] MEDS: MULTIVIT/MIN/PREN/FOL AC/IRON TABLET 1 TAB PO (09:24)
[2023-04-30] MEDS: FERROUS SULFATE 325 MG TABLET DR PO (09:24)
--- NOTE | 2023-04-30 12:03 | PC.NURSE ---
[id number] Mother led the conversation with her experience, plan to feed her so far, her ability to independently latch optimally without discomfort at times with exception to the misshaping of the nipple with using a tight tongue. Mother is getting ready to go home and is rooting. Father of the baby states bottle fed at 0800 70mls. Reminded parents to use good handwashing technique to prevent infection. Mother is feeding appropriately for growth of , understands stimulating to eat, pumping to protect the milk supply. Encouraged mother to practice and demonstrated to parents how to pace bottle feed their to not over feed and decrease challenges to get the back to the breast. Mother had limited pumping last night and . continues to root and RN encourages taking the time to latch infant to the breast. Mother agrees to breastfeed before going home and lays back in the bed placing infant [id number]. Infant begins to search and we facilitate getting latched optimally and breastfed effectively demonstrating swallowing for 10 minutes, then when mother lets go of her breast the loses the good latch. did not latch to the right breast, demonstrated late feeding cues and this is when paced bottle feeding was demonstrated and father of baby demonstrated understanding. Mother's right nipple was measured for the flange fitting as there is redness around mothers nipple and on the areola. Mother states she has been using the pump set on 4 bars. We reviewed what a proper fitting and nipple stretching will look and feed like using a education pumping handout and discussion. Mother states her pump at home has 21mm for the right side. The left side will stay at 24mm. Infant is scheduled for following up with Dr. Correa office on Friday for frenulectomy. has had appropriate feedings in the last 24 hours meets the outcomes for weight, output and jaundice at this time. Mother states she is confident to continue to feed her at home, when to call for assistance and denies any additional assistance or education at this time. Reinforced understanding of milk production, transition of milk, signs of adequate intake, transition of stool, prevention/relief of engorgement, plugged ducts, mastitis, responsive watching for feeding cues, the different methods of stimulating infant to breastfeed 2-3 hours after the start of the last feeding, community resources, and when to call a provider using the resource of the feeding sheet, business card, mom and baby guide. Parents voiced understanding of the education shared. Reported to the primary RN.
[2023-04-30] MEDS: HYDROcodone/acetaminophen (*CRX) 5-325 MG TABLET 1 TAB PO (12:26)
[2023-04-30] MEDS: IBUPROFEN 600 MG TABLET PO (12:26)
--- NOTE | 2023-05-16 11:03 | PM.OBDSVD ---
DS: Admitting Diagnosis Discharge Date 04/30/23 Admitting Diagnosis Induction of labor Post date. DS: Discharge Diagnosis Discharge Diagnosis (1) Chorioamnionitis: Code(s): O41.1290 - Chorioamnionitis, unspecified trimester, not applicable or unspecified Status: Acute (2) Delivery by section: Status: Acute (3) Failure of descent in labor, delivered, current hospitalization: Code(s): O62.2 - Other uterine inertia Status: Acute (4) hemorrhage: Code(s): O72.1 - Other immediate hemorrhage Status: Acute OB - DS: Summary Hospital Course Hospital Course: she was admitted for medical induction of labor postdates. Labor significant for chorioamnionitis protracted active. She did dilate to complete and there was no progression after 2 hours of descent of the head and she was recommended section. section was uncomplicated. She did have a 1600 EBL. Her postop hemoglobin was 6.5 she did receive 2. She did well postoperatively she was ambulating tolerating regular did not have hypovolemic symptoms. She did receive IV antibiotics for 24 hours which she was afebrile for 24 hours.she had adequate pain control. baby was doing well. She had flatus. And was ambulating well. Prior to discharge. OB Procedures : NST and Ultrasound OB Procedures Intrapartum: OB Procedures: : Transfusion and Antibiotics Peripartum Data Infant Delivery Method: Section Laceration Description: Vaginal Procedures: Procedures Operation Date: 04/26/23 09:40 Actual Procedure Side Surgeon p Section Not Applicable Adithya Garcia MD Time Spent with Patient Time attestation: Total time spent providing and/or coordinating discharge services: Exam Const: General: cooperative Orientation/consciousness: oriented to person, oriented to place and oriented to time Eyes: General: appearance normal, both eyes and all related structures Resp: Effort & Inspection: normal respiratory effort GI: Inspection: normal to inspection Other: Incision healing well Skin: General skin exam: normal color Neuro: General: oriented to person, oriented to place and oriented to time Extrem: General: normal to inspection and no calf tenderness Psych: Appearance: grossly normal Mental Status: mental status grossly normal DS: Data Data Completed and Pending Completed studies during hospitalization: Pending at discharge 04/26/23 10:28 Surgical [PTH] Routine Discharge Plan Discharge Attending physician on discharge: Adithya Garcia Consulting providers: Chema Salomon; Fallon Ruiz Discharging Clinician: Adithya Garcia Anticipated Discharge Date/Time: 04/30/23 11:21 Patient Disposition: Home, Self-Care Activity: may shower, no straining, no driving and pelvic rest Diet: regular Discharge Instructions: Education: Mom and Baby Guide Given to: Mother Follow-Up: Call your delivering provider's office for an appointment to be seen in: 4 Weeks Mom and baby should come to the [facility] for the follow-up appointment. Appointment Date/Time: May 01, 2023 at 8:00 am What to expect at your follow-up visit: Physical Assessment Call [phone] if you are unable to keep your appointment time. BREAST CARE: * Wear a snug supportive bra. * For engorgement discomfort: Breast Feeding: * Apply warm moist washcloths * Express milk as needed to relieve engorgement * Wear loose clothing Bottle Feeding: * May apply ice packs * For sore nipples: * Identify correct latch-on * Apply warm moist washcloths before and after nursing * Air dry nipples after nursing * May apply Lansinoh cream to nipples ABDOMINAL INCISION: * Allow incision to air dry * Do NOT use lotions for powders on yo
== END 2023-04-30 14:00 | disposition home or self-care (01) | DRG 786 ==
LOC: ANHLDR 16:04 → ANHOB2 04-26 14:11
PROVIDERS: Admitting Provider Obstetrics & Gynecology; Visit Provider Obstetrics & Gynecology
PROC: 10D00Z1 Extraction of Products of Conception, Low, Open Approach (ICD-10-PCS; CPT 59514; principal; 2023-04-26 09:40)
DX: O32.4XX0 Maternal care for high head at term, not applicable or unspecified (principal); O41.1230 Chorioamnionitis, third trimester, not applicable or unspecified; O75.2 Pyrexia during labor, not elsewhere classified; D62 Acute posthemorrhagic anemia; O71.82 Other specified trauma to perineum and vulva; O76 Abnormality in fetal heart rate and rhythm complicating labor and delivery; O42.92 Full-term premature rupture of membranes, unspecified as to length of time between rupture and onset of labor; O99.02 Anemia complicating childbirth; Z3A.41 41 weeks gestation of pregnancy; Z37.0 Single live birth
CPT/HCPCS: 36415; 36430; 80170; 82565; 85025; 85027; 85055; 86592; 86850; 86900; 86901; 86923; 88307; A9270; J0290; J0456; J0690; J1100; J1200; J1580; J2210; J2274; J2371; J2405; J2590; J2795; J3010; J7050; J7120; P9016

== ENCOUNTER 2023-06-05 12:00 | Outpatient (CLI) | payer BC, OTHER, SELFPAY ==
[2023-06-05 14:45] LABS: Hematocrit 40.2 % (37.0-47.0); Hemoglobin 12.9 g/dL (12.0-15.0); Mean Corpuscular HGB Conc 32.1 g/dl (32-36); Mean Corpuscular Hemoglobin 30.4 pg (26-34); Mean Corpuscular Volume 94.8 fl (80-100); Mean Platelet Volume 10.5 fl (7.4-10.4); Platelet Count Result 235 k/mm3 (150-375); Red Blood Count 4.24 M/mm3 (4.2-5.4); Red Cell Distribution Width 13.8 % (11.5-14.5); White Blood Count 5.4 K/mm3 (4.5-10.0)
== END 2023-06-05 12:01 | disposition home or self-care (01) ==
LOC: ANHLAB 12:06
PROVIDERS: Visit Provider Obstetrics & Gynecology
DX: D64.9 Anemia, unspecified (principal)
CPT/HCPCS: 36415; 85027

== ENCOUNTER 2023-09-23 12:59 | Outpatient (CLI) | payer BC, SELFPAY ==
--- NOTE | ~2023-09-23 | US_ITS ---
Pelvic ultrasound. Clinical History: Pelvic pain Technique: Realtime transabdominal scanning of the pelvis was performed. Color flow Doppler and Doppl er spectral analysis were performed. Findings: The uterus is anteverted. The endometrial stripe has a thickness of 10 mm. No focal mass i s identified. The right ovary measures 2.1 x 1.6 x 2.0 cm. No significant right ovarian or adnexal mass is seen. The left ovary measures 2.5 x 2.2 x 2.0 cm. No significant left ovarian or adnexal mass is seen. There is no evidence of free fluid in the cul de sac. Impression: Unremarkable pelvic ultrasound. Reviewed, dictated and finalized at location . Impression: Unremarkable pelvic ultrasound.
== END 2023-09-23 13:00 | disposition home or self-care (01) ==
PROVIDERS: Visit Provider Nurse Practitioner Family
DX: R10.2 Pelvic and perineal pain (principal)
CPT/HCPCS: 76856

== ENCOUNTER 2024-10-19 08:50 | Outpatient (CLI) | payer BC, SELFPAY ==
--- OUTSIDE RECORDS SUMMARY | 2024-10-19 09:14 | XMS_ITS | Clinical Summary ---
Author Organization [facility] Address [address] [place] [phone] Phone Care Team Providers Care Set Decorator Name Role Phone Unavailable Primary Care Provider Unavailabl e Allergies No known active allergies Medications bisacodyL (DULCOLAX) 10 mg Suppository Insert 1 Suppository (10 mg) by rectum daily. 12 Suppository 02/08/20 24 Active Encounters Date Type Department Care Team Description 10/05/2024 External Device Data [facility] Provider, Abstract 09/11/2024 External Device Data [facility] Provider, Abstract 09/10/2024 External Device Data [facility] Provider, Abstract 09/08/2024 External Device Data [facility] Provider, Abstract 09/07/2024 External Device Data [facility] Provider, Abstract 08/25/2024 External Device Data [facility] Provider, Abstract 08/04/2024 External Device Data [facility] Provider, Abstract 07/29/2024 External Device Data [facility] Provider, Abstract from Last 3 Months Social History Tobacco Use Types Packs/Day Years Used Date Smoking Tobacco: Never Tobacco Cessation:Counseling Given: Not Answered Feeling Safe Answer Date Recorded Are you in a relationship wi th someone who hurts you emotionally and/or physically? No 02/07/2024 Comments No Sex and Gender Information Value Date Recorded Sex Assigned at Not on file Legal Sex Female 1:31 PM CDT Gender Identity Not on file Sexual Orientation Not on file Last Filed Vital Signs Vital Sign Reading Time Taken Comments Blood Pressure 121/82 02/08/2024 12:53 AM CDT Pulse 75 02/08/2024 12:53 AM CDT Temperature 36.6 C (97.9 F) 02/08/2024 12:53 AM CDT Respiratory Rate 18 02/08/2024 12:53 AM CDT Oxygen Saturation 99% 02/08/2024 12:53 AM CDT Inhaled Oxygen Concentration - - Weight 60.3 kg (133 lb) 02/07/2024 9:59 PM CDT Height 152.4 cm (5') 02/07/2024 9:59 PM CDT Body Mass Index 25.97 02/07/2024 9:59 PM CDT Plan of Treatment Health Maintenance Due Date Last Done Comments HPV VACCINES (1 - 3-dose series) 2012 DTAP/TDAP/TD VACCINES (1 - Tdap) 2016 HEPATITIS B VACCINES (1 of 3 - 19+ 3-dose series) 2016 CERVICAL CANCER SCREENING 2018 HPV/Cotest (21-29) 2018 PAP SMEAR 2018 INFLUENZA VACCINE (#1) 2024 PNEUMOCOCCAL VACCINE 0-49 YEARS Aged Out No longer eligible based on patient's age to complete this topic [place] [address] [place] [address] [employer]
[2024-10-19 09:40] LABS: Beta HCG Quantitative < 2.39 mIU/ML
== END 2024-10-19 08:51 | disposition home or self-care (01) ==
LOC: ANHLAB 08:53
PROVIDERS: Visit Provider Obstetrics & Gynecology
DX: O20.9 Hemorrhage in early pregnancy, unspecified (principal)
CPT/HCPCS: 36415; 84702

== ENCOUNTER 2024-12-13 15:39 | Outpatient (CLI) | payer BC, SELFPAY ==
--- OUTSIDE RECORDS SUMMARY | 2024-12-13 16:30 | XMS_ITS | Clinical Summary ---
Author Organization [facility] Address [address] [place] [phone] Phone Care Team Providers Care Bicycle Service Technician Name Role Phone Unavailable Primary Care Provider Unavailabl e Allergies No known active allergies Medications bisacodyL (DULCOLAX) 10 mg Suppository Insert 1 Suppository (10 mg) by rectum daily. 12 Suppository 02/08/20 24 Active Encounters Date Type Department Care Team Description 12/07/2024 External Device Data [facility] Provider, Abstract 12/07/2024 External Device Data [facility] Provider, Abstract 11/30/2024 External Device Data [facility] Provider, Abstract 11/24/2024 External Device Data [facility] Provider, Abstract 11/23/2024 External Device Data [facility] Provider, Abstract 10/19/2024 External Device Data [facility] Provider, Abstract 10/05/2024 External Device Data [facility] Provider, [...] Health Maintenance Due Date Last Done Comments DTAP/TDAP/TD VACCINES (1 - Tdap) 2016 HEPATITIS B VACCINES (1 of 3 - 19+ 3-dose series) 2016 CERVICAL CANCER SCREENING 2018 HPV/Cotest (21-29) 2018 PAP SMEAR 2018 INFLUENZA VACCINE (#1) 2024 HPV VACCINES Aged Out No longer eligi ble based on patient's age to complete this topic Insurance [employer]
[2024-12-13 17:07] LABS: Beta HCG Quantitative 158.22 mIU/ML
[2024-12-14 04:38] LABS: Progesterone 22.8 ng/mL
== END 2024-12-13 15:40 | disposition home or self-care (01) ==
LOC: ANHLAB 15:46
PROVIDERS: Visit Provider Nurse Practitioner Family
DX: O09.299 Supervision of pregnancy with other poor reproductive or obstetric history, unspecified trimester (principal); Z3A.00 Weeks of gestation of pregnancy not specified
CPT/HCPCS: 36415; 84144; 84702

== ENCOUNTER 2024-12-15 15:47 | Outpatient (CLI) | payer BC, SELFPAY ==
--- OUTSIDE RECORDS SUMMARY | 2024-12-15 17:52 | XMS_ITS | Clinical Summary ---
Author Organization [facility] Address [address] [place] [phone] Phone Care Team Providers Care Lead Miner Name Role Phone Unavailable Primary Care Provider [...]
== END 2024-12-15 15:48 | disposition home or self-care (01) ==
LOC: ANHLAB 15:48
PROVIDERS: Visit Provider Nurse Practitioner Family
DX: O09.299 Supervision of pregnancy with other poor reproductive or obstetric history, unspecified trimester (principal); Z3A.00 Weeks of gestation of pregnancy not specified
CPT/HCPCS: 36415; 84702

== ENCOUNTER 2024-12-31 13:52 | Outpatient (CLI) | payer BC, SELFPAY ==
--- NOTE | ~2024-12-31 | US_ITS ---
EXAM/PROCEDURE: US OB <=14 wk fetus w TV - 12/31/2024 13:54 CDT HISTORY: 29 years old Female with O36.80X0 - with inconclusive viability, n... COMPARISON: None available. TECHNIQUE: Multiple transvaginal images were obtained. FINdINGS: There is a single, live, intrauterine gestation with a heart rate of 134 bpm. The crown-rump length is 0.4 mm, which is equivalent to a 6 week, 1 day gestation. This gives an estimated date of deliver y of 08/25/2025. The gestational sac is unremarkable. There is no myometrial abnormality. The ovaries appear unremark able. No significant free fluid is seen. IMPRESSION: Single live embryo with estimated date of delivery of 08/25/2025. Reviewed, dictated and finalized at location A.
== END 2024-12-31 13:53 | disposition home or self-care (01) ==
LOC: MICIMG 13:53
PROVIDERS: PCP Nurse Practitioner Family; Visit Provider Nurse Practitioner Family
DX: O36.80X0 Pregnancy with inconclusive fetal viability, not applicable or unspecified (principal); Z3A.00 Weeks of gestation of pregnancy not specified
CPT/HCPCS: 76801; 76817

== ENCOUNTER 2025-01-10 13:33 | Outpatient (CLI) | payer BC, SELFPAY ==
--- NOTE | ~2025-01-10 | US_ITS ---
EXAM/PROCEDURE: US OB <=14 wk fetus w TV - 01/10/2025 13:50 CDT HISTORY: 29 years old Female with 8 weeks with spotting COMPARISON: None available. TECHNIQUE: Multiple transvaginal images were obtained. FINdINGS: There is a single, live, intrauterine gestation with a heart rate of 161 bpm. The crown-rump length is 1.6 cm , which is equivalent to a 8 week, 0 day gestation. This gives an estimated date of delive ry of 08/22/2025. The gestational sac is unremarkable. There is no myometrial abnormality. The ovaries appear unremark able. No significant free fluid is seen. IMPRESSION: Single live embryo with estimated date of delivery of 08/22/2025. Reviewed, dictated and finalized at location A.
--- OUTSIDE RECORDS SUMMARY | 2025-01-10 13:40 | XMS_ITS | Clinical Summary ---
Author Organization [facility] Address [address] [place] [phone] Phone Care Team Providers Care Accredited Legal Secretary Name Role Phone Unavailable Primary Care Provider Unavailabl e Allergies No known active allergies Medications bisacodyL (DULCOLAX) 10 mg Suppository Insert 1 Suppository (10 mg) by rectum daily. 12 Suppository 02/08/20 24 Active Encounters Date Type Department Care Team Description 12/21/2024 External Device Data [facility] Provider, Abstract [...] 2018 PAP SMEAR 2018 INFLUENZA VACCINE (#1) 2025 HPV VACCINES Aged Out No longer eligi ble based on patient's age to complete this topic Insurance [employer]
== END 2025-01-10 13:34 | disposition home or self-care (01) ==
PROVIDERS: PCP Family Medicine; Visit Provider Obstetrics & Gynecology
DX: O46.90 Antepartum hemorrhage, unspecified, unspecified trimester (principal); Z3A.00 Weeks of gestation of pregnancy not specified
CPT/HCPCS: 76801; 76817

== ENCOUNTER 2025-02-17 14:28 | Outpatient (CLI) | payer BC, SELFPAY ==
--- OUTSIDE RECORDS SUMMARY | 2025-02-17 14:31 | XMS_ITS | Clinical Summary ---
Author Organization [facility] Address [address] [place] [phone] Phone Care Team Providers Care Pin Drafting Machine Tender Name Role Phone Unavailable Primary Care Provider Unavailabl e Allergies No known active allergies Medications bisacodyL (DULCOLAX) 10 mg Suppository Insert 1 Suppository (10 mg) by rectum daily. 12 Suppository 02/08/20 24 Active Encounters Date Type Department Care Team Description 01/25/2025 External Device Data [facility] Provider, Abstract 01/25/2025 External Device Data [facility] Provider, Abstract 01/25/2025 External Device Data [facility] Provider, Abstract 01/19/2025 External Device Data [facility] Provider, Abstract 01/19/2025 External Device Data [facility] Provider, Abstract 01/19/2025 External Device Data [facility] Provider, Abstract 12/21/2024 External Device Data [facility] Provider, [...] Tobacco: Never Tobacco Cessation:Counseling Given: Not Answered Comments No Sex and Gender Information Value [...] (1 of 3 - 19+ 3-dose series) 10/2016 CERVICAL CANCER SCREENING 2018 HPV/Cotest (21-29) 2018 PAP SMEAR 2018 INFLUENZA VACCINE (#1) 2025 Insurance
[2025-02-17 14:59] LABS: Hematocrit 34.5 % (37.0-47.0); Hemoglobin 11.9 g/dL (12.0-15.0); Mean Corpuscular HGB Conc 34.5 g/dl (32-36); Mean Corpuscular Hemoglobin 31.2 pg (26-34); Mean Corpuscular Volume 90.3 fl (80-100); Platelet Count Result 161 k/mm3 (150-375); Red Blood Count 3.82 M/mm3 (4.2-5.4); White Blood Count 6.9 K/mm3 (4.5-10.0)
[2025-02-17 15:09] LABS: Add Urine Microscopic? YES; Appearance Urine Clear (Clear); Glucose Urine UA Negative (Negative); Leukocyte Esterase Ur 1+ LEU/UL (Negative); Nitrate Urine Negative (Negative); Non Pathogenic Casts 0-2; Specific Grav Ur 1.033 (1.001-1.035)
[2025-02-17 15:43] LABS: Thyroid Stimulating Hormone 1.670 uIU/mL (0.465-4.680)
[2025-02-17 15:52] LABS: HIV 1/2 Ab P24 Ag Result Negative (Negative)
[2025-02-17 18:01] LABS: Hepatitis B Surface Antigen Negative (Negative)
[2025-02-17 19:06] LABS: Syphilis IgG/IgM Antibody 1.49 S/C; Syphilis IgG/IgM Antibody Reactive (Nonreactive)
[2025-02-19 05:08] LABS: Varicella-Zoster Ab, IgG Reactive (Non Reactive); Varicella-Zoster Ab, IgM <0.91 index (0.00-0.90)
[2025-02-19 07:09] LABS: RPR Non Reactive (Non Reactive)
== END 2025-02-17 14:29 | disposition home or self-care (01) ==
LOC: ANHLAB 14:29
PROVIDERS: PCP Family Medicine; Visit Provider Obstetrics & Gynecology
DX: Z34.90 Encounter for supervision of normal pregnancy, unspecified, unspecified trimester (principal); Z3A.00 Weeks of gestation of pregnancy not specified
CPT/HCPCS: 36415; 81001; 84443; 85027; 86592; 86593; 86703; 86762; 86780; 86787; 86803; 86850; 86900; 86901; 87086; 87340; G0432

== ENCOUNTER 2025-03-04 15:43 | Outpatient (CLI) | payer BC, SELFPAY ==
--- OUTSIDE RECORDS SUMMARY | 2025-03-04 15:46 | XMS_ITS | Clinical Summary ---
Author Organization [facility] Address [address] [place] [phone] Phone Care Team Providers Care Epic Application Coordinator Name Role Phone Unavailable Primary Care Provider [...] 2018 HPV/Cotest (21-29) 2018 PAP SMEAR 2018 HPV VACCINES (1 - 3-dose SCDM series) 2024 INFLUENZA VACCINE (#1) [address] [place] [address] [address] FED[employer]AL
== END 2025-03-04 15:44 | disposition home or self-care (01) ==
LOC: ANHLAB 15:44
PROVIDERS: PCP Family Medicine; Visit Provider Nurse Practitioner Family
DX: O26.892 Other specified pregnancy related conditions, second trimester (principal); A53.0 Latent syphilis, unspecified as early or late; Z3A.16 16 weeks gestation of pregnancy
CPT/HCPCS: 86780

== ENCOUNTER 2025-06-09 10:20 | Outpatient (CLI) | payer BC, SELFPAY ==
--- OUTSIDE RECORDS SUMMARY | 2025-06-09 11:31 | XMS_ITS | Clinical Summary ---
Author Organization [facility] Address [address] [place] [phone] Phone Care Team Providers Care Skip Miner Blasting Name Role Phone Unavailable Primary Care Provider Unavailabl e Allergies No known active allergies Medications bisacodyL (DULCOLAX) 10 mg Suppository Insert 1 Suppository (10 mg) by rectum daily. 12 Suppository 02/08/20 24 Active Encounters Date Type Department Care Team Description 05/24/2025 External Device Data [facility] Provider, Abstract 05/24/2025 External Device Data [facility] Provider, Abstract 05/19/2025 Orders Only [address] [place] [phone] Provider, Abstract 05/18/[address] [place] [phone] Chitra Mcfarland CNM Outside Records Received from Last 3 Months Social History Tobacco [...] 02/07/2024 9:59 PM CDT Plan of Treatment Upcoming Encounters Date Type Department Care Team (Late st Contact Info) Description 06/15/2025 1:40 PM COMPLETION ENGINEER Initial [facility] GIFT MANAGER - [facility] [place] [address] [facility] [address] [place] [phone] Ladonna Fuller, [facility] [address] [facility] [address] [place] [phone] Health Maintenance Due Date Last Done Comments DTAP/TDAP/TD VACCINES (1 - Tdap) 2016 HEPATITIS B VACCINES (1 of 3 - 19+ 3-dose series) 10/2016 CERVICAL CANCER SCREENING 2018 HPV/Cotest (21-29) 2018 PAP SMEAR 2018 HPV VACCINES (1 - 3-dose SCDM series) 2024 INFLUENZA VACCINE (#1) [address] [place] [address] FEDERAL
--- OUTSIDE RECORDS SUMMARY | 2025-06-09 11:31 | XMS_ITS | Clinical Summary ---
Author Organization [facility] Address [address] [place] [address] Care Team Providers Care Casualty Claims Supervisor Name Role Phone Unavailable Primary Care Provider Unavailabl e Source Comments [facility],non-owned Affiliates and Associated Physician Practices is amultiple site organization consisting of ambulatory clinics and hospital sitesin [place], [place], [place] and [place]. This disclosure is being madepursuant to the Care Everywhere program and may not contain all information available regarding this patient. Last updated 18.[facility] Allergies No known active allergies Encounters Date Type Department Care Team Description 04/12/2025 1:00 PM CDT - 04/12/2025 11:59 PM CDT Hospital Encounter [facility] Women's Health Maternal & Care [address] [place] [address] Jareth Auguste MD Discharge Disposition: Home or Self Care from Last 3 Months Family History Medical History Relation Name Comments Hypertension Mother Relation Name Status Comments Mother Social History Tobacco Use Types Packs/Day Years Used Date Smoking Tobacco: Never Assessed Estimated Date of Delivery Comme nts Yes 08/23/2025 Based on last me nstrual period of 11/16/2024 Sex and Gender Information Value Date Recorded Sex Assigned at Not on file Legal Sex Female 6:46 AM CDT Gender Identity Not on file Sexual Orientation Not on file Plan of Treatment Health Maintenance Due Date Last Done Comments HIV SCREENING 2012 HEPATITIS C SCREENING 11/03/2015 DTAP/TDAP/TD VACCINES (1 - Tdap) 2016 HEPATITIS B VACCINE (1 of 3 - 19+ 3-dose series) 2016 PAP SMEAR 2018 DEPRESSION SCREENING 07/07/2024 HPV VACCINE (1 - 3-dose SCDM series) 2024 COVID-19 VACCINE (2024-2 6 season) 2025 INFLUENZA VACCINE (#1) 2025 OB-ONE HOUR GLUCOSE 05/17/2025 OB-TDAP CURRENT 05/24/20252022, 02/24/2009 OB-RHOGAM INJECTION 05/31/2025 Respiratory Syncytial Virus (RSV) Vaccine Pt: or over 60 yrs (1 - Risk 1-dose series) 06/28/2025 ZOSTER VACCINE (1 of 2) 11/08/2047 HIB VACCINE Aged Out No longer eligi ble based on patient's age to complete this topic MENINGOCOCCAL (Group B) VACCINE SHARED DECISION-MAKING Aged Out No longer eligible based on patient's age to complete this topic MENINGOCOCCAL GROUPS A/C/Y/W VACCINE Aged Out No longer eligible b ased on patient's age to complete this topic PNEUMOCOCCAL VACCINE Aged Out No long er eligible based on patient's age to complete this topic Procedures Procedure Name Priority Date/Time Associated Diagnosis Comments SONOGRAM - COMPLETE Routine 04/12/2025 1 :06 PM CDT Encounter for anatomic survey (HCC) 21 weeks gestation of (HCC) from Last 3 Months Results * Sonogram - Complete (04/12/2025 1:06 PM CDT) Linked Results Indication ======== anatomy evaluation History ====== OB History 3. Para 1 [id number] 1. live 2022. Gest. age 41 w + 0 d. Sex of child: male. Details: 3996 2. miscarriage 2024 Lab Tests Test Date Result NIPT Not performed Maternal Assessment Physical Exam Height 152 cm, 5 ft 0 in. Initial weight 61 kg, 135 lb. Initial BMI 26.37 kg/m Method ====== Transabdominal ultrasound. View: Good view ========= Parada . Number of fetuses: 1 Dating ====== Date Details Gest. age DOMONIQUE LMP 11/16/2024 21 w + 0 d 08/23/2025 U/S 04/12/2025 based upon AC, BPD, Femur, HC 21 w + 0 d 08/23/2025 Assigned dating based on the LMP, selected on 04/12/2025 21 w + 0 d 08/23/2025 General Evaluation Cardiac activity present. FHR 137 bpm. Presentation: cephalic Placenta: Placental site: posterior. No previa seen Umbilical cord: Cord vessels: 3 vessel cord. Insertion site: normal insertion Amniotic fluid: Amount of AF: normal. MVP 5.6 cm Biometry BPD 49.5 mm 21w 0d 48% Hadlock HC 186.6 mm 21w 0d 40% Hadlock Cerebellum tr 23.1 mm 91% [place] Nuchal fold 2.7 mm AC 161.5 mm 21w 2d 51% Hadlock Femur 33.8 mm 20w 4d 28% Hadlock Humerus 32.6 mm 21w 0d 43% Romain HC / AC 1.16 20w 3d 54% Hadlock Weight Calculation: EFW 389 g 43% Hadlock EFW (lb,oz) 0 lb 14 oz EFW by Hadlock ([id number]) Head / Face / Neck Biometry: CM 7.7 mm 97% Nicolaides appropriate Growth Overview Exam date GA BPD (mm) HC (mm) AC (mm) FL (mm) HL (mm) EFW (g) 04/12/2025 21w 0d 49.5 48% 186.6 40% 161.5 51% 33.8 28% 32.6 43% 389 43% Anatomy The following structures appear normal: Head / Neck Cranium. Lateral ventricles. Choroid plexus. Midline falx. Cavum septi pellucidi. Cerebellum. Cisterna magna. Thalami. Nuchal fold. Face Lips. Profile. Nose. Nasal bone. Orbits. Heart / Thorax 4-chamber view. RVOT view. LVOT view. 3-vessel view. 3-vmlbyc-lkgfsfp view. Situs. Aortic arch view. Bicaval view. Ductal arch view. Interventricular septum. Great vessels. Right lung. Left lung. Diaphragm. Abdomen Cord insertion. Stomach. Kidneys. Bladder. Bowel. Genitals. Spine Cervical spine. Thoracic spine. Lumbar spine. Sacral spine. Extremities / Skeleton Arms. Hands. Legs. Feet. sex: male. Maternal Structures Right Ovary Not visualized Appearance: Adnexa appears normal Left Ovary Not visualized Appearance: Adnexa appears normal Impression ========= Single, live, intrauterine at 21w 0d The size is appropriate. The amniotic fluid volume is normal. No major malformations were seen within the limitations of ultrasound. Transvaginal cervical length screening was declined by the patient. Follow-up ======== as clinically indicated Coding ====== Diagnoses Z36.3: Encounter for screening for malformations Procedures 72521: US Preg Uterus >14 weeks T [facility] Contapps PACS Anatomical Region Laterality Modality Other 04/12/2025 1:06 PM CDT Adithya Putnam MD [facility] ORDERABLES Edited Result - Final from Last 3 Months Insurance [facility]
[2025-06-09 11:42] LABS: Hematocrit 33.0 % (37.0-47.0); Hemoglobin 10.9 g/dL (12.0-15.0); Immature Granulocyte Percent A 4.9 % (0-0.5); Lymphocytes Absolute Auto 1.25 K/mm3 (0.9-3.2); Mean Corpuscular HGB Conc 33.0 g/dl (32-36); Mean Corpuscular Hemoglobin 30.6 pg (26-34); Mean Corpuscular Volume 92.7 fl (80-100); Nucleated Red Blood Cells Absolute Auto 0.000 K/mm3 (0.0-0.012); Nucleated Red Blood Cells Perc 0.0 % (0.0-0.2); Platelet Count Result 153 k/mm3 (150-375); Red Blood Count 3.56 M/mm3 (4.2-5.4); White Blood Count 9.4 K/mm3 (4.5-10.0)
[2025-06-09 11:54] LABS: Glucose 1 Hour PP 50gm Dose 126 mg/dL
[2025-06-09 12:35] LABS: HIV 1/2 Ab P24 Ag Result Negative (Negative)
[2025-06-09 14:40] LABS: Syphilis IgG/IgM Antibody 1.73 S/C
[2025-06-10 11:31] LABS: Reference Lab Test Name RPR
[2025-06-10 11:33] LABS: Reference Lab Test Name Treponemal IgG/IgM
[2025-06-13 12:32] LABS: Syphilis IgG/IgM Antibody Reactive (Nonreactive)
== END 2025-06-09 10:21 | disposition home or self-care (01) ==
LOC: ANHLAB 10:21
PROVIDERS: PCP Family Medicine; Visit Provider Obstetrics & Gynecology
DX: Z34.90 Encounter for supervision of normal pregnancy, unspecified, unspecified trimester (principal)
CPT/HCPCS: 36415; 82947; 85025; 86593; 86703; G0432